=== PATIENT | male | born 1945 | race Caucasian/White ===

== ENCOUNTER → 2023-04-19 08:20 | Outpatient (BNVA) | payer MEDICARE, BC, SELFPAY | PROVIDERS: PCP Family Medicine; Visit Provider Anesthesiology | DX: M48.00 Spinal stenosis, site unspecified (principal); M96.1 Postlaminectomy syndrome, not elsewhere classified; M54.50 Low back pain, unspecified; G89.4 Chronic pain syndrome; Z87.81 Personal history of (healed) traumatic fracture | CPT/HCPCS: 99202 ==

== ENCOUNTER 2023-05-03 09:33 | Outpatient (AMB) | payer MEDICARE, BC, SELFPAY ==
--- NOTE | 2023-05-03 09:39 | A.OFFVIS_ITS ---
Intake Vital Signs 05/03/23 09:44 Height 5 ft 8.25 in Weight 236 lb BMI 35.6 BP 132/67 Blood Pressure Location Rt brachial Position Sitting Respiration 16 Pulse 72 Pulse Source Pulse Oximeter Pulse Oximetry (%) 96 Oxygen Delivery Method Room Air Intake Visit Reasons: Two Week Follow Up (Per Dr. Jordan) Allergies morphine Allergy (Mild, Verified 05/03/23 09:43) Fainting sildenafil [From Viagra] Allergy (Mild, Verified 05/03/23 09:43) Headache tadalafil [From Cialis] Allergy (Mild, Verified 05/03/23 09:43) Headache HPI HPI Comments History of Present Illness Details Rigoberto is very pleasant 77 years old male, who is back in my office to discuss potential possibility of treating his pain. He reports now that in the past he had trial of SCS of unknown company, he reports that according to the provider who did SCS the ?nerves which needs to be stimulated were not found. ?. He reported that he did not feel any stimulation during the trial. Implantation was not performed. He is reluctant to try again spinal cord stimulator. The only option he had left for me is I DDD pain pump. Apparently some psychological issues exist with this patient, he also attending therapy and consideration is made whether not he needs oral medications. It could be a long shot before patient will become stable and able to pass psychological evaluation. Nevertheless brochure will be given to the patient , possibility of treating his condition with opioids and nonopioid (bupivacaine) medications was discussed with the patient. Prior: not very good historian, complains on pain in the back and pain in the left buttock.pain started 4 years ago he gives history of prostate cancer with lymph nodes metastasis which was treated with radiation, radiation treatment resulted probably in osteoporosis, patient fell on his buttocks and fractured his pelvis in multiple sites. He went for a surgery of fusion of the pelvic insufficiency fractures in [facility], the surgery was done with screws and plates. T unfortunately he developed the infection which required several repeat surgeries to salvage the situation. In 2019 he was operated on his lumbar spine some sort of a surgery was performed to address the issue of spinal stenosis. Since then patient reports significant pain in the lower back with intensity of 7/10 he reports that standing and walking aggravates his pain. Past medical history significant for dizziness and fainting history of prostate cancer fatigue shortness of breath history of kidney stones history of gallstones history of arthritis and sexual dysfunction. His past surgical history significant for bilateral hip replacement bilateral knee replacement right shoulder replacement 3 pelvic surgery for sacrum surgeries and 2 tibial plateau fractures. Review of Systems Const All systems reviewed & are unremarkable except as noted in HPI and below ENT Reports Normal hearing present Neuro Reports Normal hearing present, Denies Abnormal speech present, Denies confusion and Denies Sensory deficit (Neuro) Psych Denies confusion Physical Exam Vital Signs: Last Vital Signs Pulse 72 05/03/23 09:44 Resp 16 05/03/23 09:44 BP 132/67 05/03/23 09:44 Pulse Ox 96 05/03/23 09:44 Oxygen Delivery Method Room Air 05/03/23 09:44 BMI result Body Mass Index 35.6 Const General: no acute distress; No confusion Orientation/consciousness: patient oriented x3 and No confusion Eyes General: appearance normal, both eyes and all related structures Pupils: Equal, round and reactive pupils present EOM: EOMs intact bilaterally Neck Neck: Yes full ROM Chest Chest palpation & inspection: normal inspection of the chest Resp Effort & Inspection: normal respiratory effort, able to speak in complete sentences, normal respiratory pattern, no audible wheezes and no cough Cardio Jugular venous distension: no JVD GI Inspection: Yes normal to inspection Back/Spine/Pelvis Other: The patient is able to stand on bilateral tiptoes and bilateral heels. That demonstrates normal strength of bilateral lower extremities. He is able to flex bilateral hips, however flexing left hip is less vigorous than flexing the right hip. SLR is negative bilaterally.Lassegue test is negative bilaterally. Shay test is positive on the left and negative on the right. He is able to flex himself forward to about 60 degrees, he is unable to flex backwards. There are 3 scars in the posterior lumbar spine midline incision as well as paraspinal 2 incisions 1 on the left and 1 on the right. This incisions are healed very well. Neuro General: patient oriented x3, gait normal and No confusion Cranial nerves: Yes CN's II-XII intact bilaterally, Yes Equal, round and reactive pupils present, Yes Normal hearing present and Yes Ability to bilaterally elevate shoulders present Speech: No Abnormal speech present Gait exam (Neuro): Normal gait present Motor exam (neuro): 5/5 motor strength present throughout Sensory Exam: No Sensory deficit (Neuro) Extrem General: No pedal edema Psych Speech and movement: Normal speech and movement present Affect: normal affect Attitude: cooperative Thought process: Normal thought process present Thought content: Normal thought content present Insight: Good insight present (Psych) Judgement: Good judgement present (Psych) Assessment & Plan Assessment & Plan (1) Spinal stenosis: Code(s): M48.00 - Spinal stenosis, site unspecified (2) Postlaminectomy syndrome: Code(s): M96.1 - Postlaminectomy syndrome, not elsewhere classified (3) History of pelvic fracture: Code(s): Z87.81 - Personal history of (healed) traumatic fracture (4) Low back pain: Code(s): M54.50 - Low back pain, unspecified (5) Chronic pain syndrome: Code(s): G89.4 - Chronic pain syndrome Plan The patient has multiple pain generators including previous pelvis insufficiency fracture which was treated with plates and screws in [facility] and required due to infection multiple reoperations. He also in 2018 had lumbar fusion in the lower back. History of prostate cancer with radiation treatment. Possibly radiation resulted in pelvis osteoporosis. Had a trial of SCS of unknown company with poor results. Reluctant to consider SCS. I DDD was offered to the patient. He is under family therapy, reports that they consider psychoactive drugs to treat his conditions. Possibly not a good candidate for the I DDD however I would not mind to send him to psychologist. Self admittedly he is not stable . Nevertheless brochure will be sent to the patient. If he decides to proceed with I DDD trials he will give us a call. Coding Level of Care Code Est Pt Level 4 (25921) Diagnoses Spinal stenosis M48.00 Postlaminectomy syndrome M96.1 History of pelvic fracture Z87.81 Low back pain M54.50 Chronic pain syndrome G89.4
[2023-05-03 09:44] VITALS: BP 132/67; PULSE 72; RESP 16; O2SAT 96; BMI 35.6
== END 2023-05-03 10:22 | disposition home or self-care (01) ==
PROVIDERS: PCP Family Medicine; Visit Provider Anesthesiology
DX: M48.00 Spinal stenosis, site unspecified (principal); M96.1 Postlaminectomy syndrome, not elsewhere classified; Z87.81 Personal history of (healed) traumatic fracture; M54.50 Low back pain, unspecified; G89.4 Chronic pain syndrome
CPT/HCPCS: 99214

== ENCOUNTER → 2023-05-03 09:33 | Outpatient (BNVA) | payer MEDICARE, BC, SELFPAY | PROVIDERS: PCP Family Medicine; Visit Provider Anesthesiology | DX: G89.4 Chronic pain syndrome (principal); M48.00 Spinal stenosis, site unspecified; M96.1 Postlaminectomy syndrome, not elsewhere classified; M54.50 Low back pain, unspecified; Z98.1 Arthrodesis status; Z87.81 Personal history of (healed) traumatic fracture | CPT/HCPCS: 99212 ==